=== PATIENT | female | born 1985 ===

== ENCOUNTER → 2017-10-15 | Outpatient (CLI) | payer BC ==
[~2017-10-15] MED LIST: COCO1000 PO; DEXL60CA6 PO; HYDR2TAB4 PO; LACT1CAP4 PO; LEVO50TA86 PO; MULT1TAB64 PO; NS(*) 0.9% 10 ML VIAL 10 ML ONE; SINCALIDE 5 MCG VIAL INJ ONE
--- NOTE | 2017-10-15 12:02 | RADIOLOGY IMAGING REPORT ---
FACILITY: [facility] PATIENT NAME: Marissa Jon : 1985 MR: [id number] V: [id number] EXAM DATE: ORDERING PHYSICIAN: SENTHIL JOHNSON TECHNOLOGIST: Location: [facility] Patient: Marissa Jon : 1985 Visit/Account:[id number] Date of Sevice: 10/15/2017 GALLBLADDER HISTORY: Abdomen pain off and on for one year COMPARISON: None. FINDINGS: Gallbladder: Is no demonstration of gallbladder stones, sludge, gallbladder wall thickening, perichol ecystic fluid or positive Gupta sign Liver: Borderline hepatomegaly. Liver appears of normal echogenicity with no evidence of focal светлана s Common duct: Normal, 3.5 mm diameter. Pancreas: Unremarkable as imaged Right kidney: Right kidney appears unremarkable measuring 9.2 cm in length. The resistive index is 0 .51 Upper abdominal aorta and IVC: Patent. Ascites: None visualized. IMPRESSION: Borderline hepatomegaly otherwise unremarkable right upper quadrant ultrasound Report Dictated By: Soila Javier MD at 10/15/2017 11:55 AM Report E-Signed By: Soila Javier MD at 10/15/2017 11:58 AM WSN:[id number]
--- NOTE | 2017-10-15 12:09 | RADIOLOGY IMAGING REPORT ---
[place] [facility] [place]: Marissa Jon : 1985 MR: [id number] V: [id number] EXAM DATE: ORDERING PHYSICIAN: SENTHIL JOHNSON TECHNOLOGIST: Location: [facility] Patient: Marissa Jon : 1985 Visit/Account:[id number] Date of Sevice: 10/15/2017 GALLBLADDER W KINEVAC HISTORY: Abdomen pain on and off for one year COMPARISON: Today's right upper quadrant ultrasound FINDINGS: There is no demonstration of gallbladder stones or sludge. Gallbladder volume prior to Kinevac injec tion was 23.2 mL. The patient received 2.45 mL of CCK intravenously and sequential imaging was obtai luis over the right upper quadrant up to 30 minutes. The maximum gallbladder contraction revealed a g allbladder volume of 3.9 mL. This is equivalent to a gallbladder ejection fraction of 83.5%. The pa tient experienced nausea three on a scale of five following CCK injection. IMPRESSION: Gallbladder ejection fraction of 83.5% Report Dictated By: Soila Javier MD at 10/15/2017 12:01 PM Report E-Signed By: Soila Javier MD at 10/15/2017 12:04 PM ZIYAD:[email or web address]
== END ==
LOC: US 01:14
PROVIDERS: ATTEND Nurse Practitioner Family
DX: R10.11 Right upper quadrant pain (principal)
CPT/HCPCS: 76705; 81025; J2805

== ENCOUNTER 2017-11-14 00:57 | Day surgery (SDC) | payer BC ==
[~2017-11-14] VITALS: Ht 157.5 cm; Wt 58.5 kg
[~2017-11-14 00:57] MED LIST changes: +LIDOCAINE/SOD BICARB 8.4% SYR ID ONE; +NORMOSOL R SOLN(*) 1000 ML BAG 1,000 ML IV PRN; -NS(*) 0.9% 10 ML VIAL 10 ML ONE; -SINCALIDE 5 MCG VIAL INJ ONE
[2017-11-14 11:00] VITALS: BP 109/67
[2017-11-14] MEDS ORDERED: NORMOSOL R SOLN(*) 1000 ML BAG 1,000 ML IV PRN (11:30)
[2017-11-14] MEDS ORDERED: LIDOCAINE/SOD BICARB 8.4% SYR ID ONE (11:30)
[2017-11-14 13:12] VITALS: BP 89/61
[2017-11-14 13:30] VITALS: BP 97/55
[2017-11-14 13:45] VITALS: BP 98/67
[2017-11-14 13:46] VITALS: BP 86/73
== END 2017-11-14 13:55 | disposition home or self-care (01) ==
LOC: OR 00:57
PROVIDERS: ATTEND Internal Medicine Gastroenterology
DX: K20.9 Esophagitis, unspecified (principal); K44.9 Diaphragmatic hernia without obstruction or gangrene; K29.70 Gastritis, unspecified, without bleeding
CPT/HCPCS: 36415; 84703; 88305; 88344